=== PATIENT | female | born 1960 | race Caucasian/White ===

== ENCOUNTER → 2017-01-20 | Outpatient (CLI) | payer MEDICARE, OTHER ==
--- NOTE | ~2017-01-20 | MR17 ---
[facility] A Service of [facility] & [facility] RADIOLOGY TEXT RESULTS PATIENT: LEIGHANN PISANO LOCATION: [facility] : 62 UNIT #: [id number] AGE: [address]: Christoph Munroe MD SEX: F ORDER DR: [id number] [place] [address] [place], [place] [address] [id number] O MR#: [id number] Acc #: [id number] NAME: LEIGHANN PISANO. : 1960 SEX: F STUDY DATE/TIME: 01/20/2017 17:52 UNIT: [facility] ROOM: STUDY DESCRIPTION: MR Brain WWo Contrast Attending Physician: Christoph Munroe M.D., Ph.D. Referring Physician: Christoph Munroe M.D., Ph.D. Ordering Physician: Christoph Munroe M.D., Ph.D. Primary Care Physician: Sunita Restrepo MRI CENTER REPORT This report is preliminary unless electronic signature is present. EXAM MRI of the brain with and without contrast dated 01/20/2017. COMPARISON None HISTORY Patient was diagnosed with lung cancer a month ago. Occasional dizziness for 2 months. Evaluate for metastatic disease. FINDINGS Multisequence, multiplanar imaging of the brain was obtained with and without contrast. GFR measured greater than 60. 17 mL of MultiHance was administered intravenously. Scattered hyperintense T2-signal lesions are noted in the subcortical and periventricular white matter. No acute stroke, space-occupying intracranial mass, mass effect, midline shift or hydrocephalus. Postcontrast sequences do not demonstrate enhancing lesions. Vascular flow voids of the major cerebral arteries and dural venous sinuses are not completely occluded in these thicker slices. Paranasal sinus mucosal thickening is noted, relatively worse than left maxillary sinus and in the right anterior ethmoids and adjacent inferior right frontal sinus. IMPRESSION 1. No demonstrable intracranial acute abnormality. 2. Scattered few small nonenhancing hyperintense T2-signal lesions are noted in the white matter, particularly in the subcortical white matter, likely related to minimal chronic microvascular ischemic change or a migraine based on age and statistics. 3. Paranasal sinus mucosal thickening with nasal septal deviation to the left. [facility] A Service of [facility] & [facility] RADIOLOGY TEXT RESULTS PATIENT: LEIGHANN PISANO [facility] #: [id number] : 62 UNIT #: [id number] AGE: [address]: Christoph Munroe MD SEX: F ORDER DR: Dictated by... Adriano Woods M.D. THIS IS AN ELECTRONICALLY VERIFIED REPORT Adriano Woods M.D. at 01/22/2017 1:15 PM CPR/tmw TD: 01/21/2017 14:50 JOB #: [id number] MRI CENTER REPORT Page 1 of 1 COPY
[2017-01-20 18:16] LABS: POC - CREATININE 0.82 mg/dL (0.44-1.03); POC - GFR >60.0 mL/min (>60)
== END | disposition home or self-care (01) ==
LOC: CMRI 16:46
PROVIDERS: Internal Medicine Hematology & Oncology
DX: C34.90 Malignant neoplasm of unspecified part of unspecified bronchus or lung (principal); M48.8X4 Other specified spondylopathies, thoracic region; J34.89 Other specified disorders of nose and nasal sinuses; J34.2 Deviated nasal septum
CPT/HCPCS: 70553; 82565; A9577

== ENCOUNTER → 2017-01-22 | Outpatient (CLI) | payer MEDICARE, OTHER ==
--- NOTE | ~2017-01-22 | PFT ---
[id number] [facility] [address] [place], [place] [address] [id number] O MR#: [id number] NAME: LEIGHANN PISANO ROOM: SEX: F STUDY DATE/TIME: 01/22/2017 : 1960 AGE: 56 STUDY DESCRIPTION: Attending Physician: Christoph Munroe M.D., Ph.D. Referring Physician: Christoph Munroe M.D., Ph.D. Primary Care Physician: Sunita Restrepo PULMONARY DIAGNOSTIC REPORT EXAM Pulmonary Function Test DESCRIPTION Spirometry is consistent with a mild obstructive defect. There is no significant response to bronchodilators. FEV1 is 1.6 L, 66% of predicted. Flow volume loop is consistent with an obstructive defect. Lung volumes suggest air trapping. Diffusion capacity is low normal. Dictated by... Eliud Matthews M.D. ANNA/kassy TD: 01/28/2017 07:26 JOB #: [id number] CC: Christoph Munroe M.D., Ph.D. PULMONARY DIAGNOSTIC REPORT Page 1 of 1
== END | disposition home or self-care (01) ==
LOC: CRC 13:00
DX: C34.90 Malignant neoplasm of unspecified part of unspecified bronchus or lung (principal)
CPT/HCPCS: 94060; 94726; 94729